=== PATIENT | male | born 1950 ===

== ENCOUNTER 2023-03-10 04:36 | Day surgery (SDC) | payer OTHER ==
[2023-03-09 11:41] VITALS: BMI 37.2
[2023-03-10] MEDS ORDERED: FENTANYL CITRATE/PF 50 MCG/ML VIAL ONE (10:33)
[2023-03-10 11:26] VITALS: TEMP 97.5
[2023-03-10 12:17] VITALS: BP 115/64; PULSE 64; RESP 20
== END 2023-03-10 12:35 | disposition home or self-care (01) ==
LOC: JASU-ENDO 04:36
PROVIDERS: ATTEND Internal Medicine Gastroenterology
PROC: 0DBN8ZX Excision of Sigmoid Colon, Via Natural or Artificial Opening Endoscopic, Diagnostic (ICD-10-PCS; 2023-03-10)
PROC: 0DB68ZX Excision of Stomach, Via Natural or Artificial Opening Endoscopic, Diagnostic (ICD-10-PCS; 2023-03-10)
PROC: 0DB78ZX Excision of Stomach, Pylorus, Via Natural or Artificial Opening Endoscopic, Diagnostic (ICD-10-PCS; 2023-03-10)
PROC: 0DBK8ZX Excision of Ascending Colon, Via Natural or Artificial Opening Endoscopic, Diagnostic (ICD-10-PCS; principal; 2023-03-10 10:00)
DX: Z12.11 Encounter for screening for malignant neoplasm of colon (principal); D12.2 Benign neoplasm of ascending colon; D12.5 Benign neoplasm of sigmoid colon; Z80.0 Family history of malignant neoplasm of digestive organs; K29.50 Unspecified chronic gastritis without bleeding
CPT/HCPCS: 88305-TC; 88342-TC